=== PATIENT | female | born 1995 | race Caucasian/White ===

== ENCOUNTER 2017-10-24 08:58 | Emergency (ER) | payer OTHER ==
[2017-10-24] MEDS ORDERED: OXYMETAZOLINE NASAL SPRAY NAS STA (10:11)
[2017-10-24] MEDS ORDERED: ACETAMINOPHEN 325 MG TABLET PO STA (10:11)
--- NOTE | 2017-10-24 10:14 | ED Physician Documentation ---
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 denies: Epistaxis Musculoskeletal: denies: Neck pain Neurologic: reports: Headache, Head injury. denies: Focal weakness, Numbness, Difficulty speaking Endocrine: denies: Easy bruising / bleeding Immunocompromised: denies: Immunocompromised PD PAST MEDICAL HISTORY - Past Medical History Past Medical History: No - Past Surgical History Past Surgical History: No - Present Medications Home Medications: Ambulatory Orders Medication Instructions Recorded Confirmed Conr 10/24/17 No Known Home Medications [No 10/24/17 10/24/17 Known Home Medications] - Allergies Allergies/Adverse Reactions: Allergies Allergy/AdvReac Type Severity Reaction Status Date / Time No Known Drug Allergies Allergy Verified 10/24/17 09:18 - Social History Does the pt smoke?: No Smoking Status: Never smoker Does the pt drink ETOH?: No Does the pt have substance abuse?: No PD ED PE NORMAL - Vitals Vital signs reviewed: Yes - HEENT HEENT: PERRL, EOMI, Other (nasla septum TTP but straight, mild swelling, no septal hematoma or deviation on internal exam) - Neck Neck: No bony TTP - Cardiac Cardiac: RRR - Respiratory Respiratory: No respiratory distress, Clear bilaterally - Neuro Neuro: Alert and oriented X 3 Eye Opening: Spontaneous Motor: Obeys Commands Verbal: Oriented GCS Score: 15 Results - Vitals Vitals: Vital Signs - 24 hr 10/24/17 09:15 Temperature 36.8 C Heart Rate 89 Respiratory 16 Rate Blood Pressure 122/79 O2 Saturation 100 Oxygen O2 Source Room air PD MEDICAL DECISION MAKING - Sepsis Event Vital Signs: Vital Signs - 24 hr 10/24/17 09:15 Temperature 36.8 C Heart Rate 89 Respiratory 16 Rate Blood Pressure 122/79 O2 Saturation 100 Oxygen O2 Source Room air Departure - Departure Disposition: 01 Home, Self Care Clinical Impression: Contusion of nose Qualifiers: Encounter type: initial encounter Qualified Code(s): S00.33XA - Contusion of nose, initial encounter Condition: Good Instructions: ED Contusion Nasal Vs Fx No X Ray Comments: The nasal septum appears straight and there s no bleeding So even if there is a fracture the treatment will still be ice tylenol and afrin So I do not think xrays will be beneficial Return if worse
[2017-10-24 10:37] VITALS: BP 120/80
== END 2017-10-24 10:36 | disposition home or self-care (01) ==
LOC: ED 08:58
DX: S00.33XA Contusion of nose, initial encounter (principal); W51.XXXA Accidental striking against or bumped into by another person, initial encounter; Y93.F9 Activity, other caregiving; Y92.210 Daycare center as the place of occurrence of the external cause; Y99.0 Civilian activity done for income or pay
CPT/HCPCS: 99282; 99283; A9270